=== PATIENT | female | born 1960 | race Caucasian/White ===

== ENCOUNTER → 2018-07-28 08:34 | Outpatient (CLI) | payer MEDICARE | END | disposition home or self-care (01) | LOC: D.RAD 08:34 | PROVIDERS: ATTEND Internal Medicine Gastroenterology | DX: R13.10 Dysphagia, unspecified (principal); R11.0 Nausea; R10.13 Epigastric pain ==

== ENCOUNTER → 2018-08-31 07:20 | Outpatient (CLI) | payer MEDICARE ==
--- NOTE | 2018-08-31 08:45 | NUR ---
PATIENT WAS SCHEDULED FOR A GASTRIC EMPTYING SCAN AT 0800 ON 08/31/18. AFTER SPEAKING WITH THE PATIENT, SHE STATED SHE HAD PAIN MEDS AT 4 AM. PATIENTS MUST BE OFF OF PAIN MEDS FOR A MINIMUM OF 6 HOURS PRIOR TO THE EXAM. EXPLAINED THIS TO THE PATIENT. INFORMED HER THAT I COULD STILL DO HER EXAM TODAY BUT IT WOULD HAVE TO BE LATER TO MEET THE 6 HOUR REQUIREMENT. I LET HER KNOW THAT IF SHE WANTED TO COME BACK AT 1015 TODAY, THE EXAM COULD STILL BE DONE. SHE AGREED.
== END | disposition home or self-care (01) ==
LOC: D.NM 07:20
DX: K31.84 Gastroparesis (principal)